=== PATIENT | male | born 1960 | race Caucasian/White ===

== ENCOUNTER → 2023-12-14 13:12 | Outpatient (REF) | payer BC, SELFPAY | LOC: HWRAD 13:12 | PROVIDERS: ATTENDING PHYSICIAN Surgery; FAMILY PHYSICIAN Internal Medicine | DX: N50.812 Left testicular pain (principal); R10.32 Left lower quadrant pain | CPT/HCPCS: 76870; 93976 ==

== ENCOUNTER → 2023-12-20 09:08 | Outpatient (REF) | payer BC, SELFPAY | LOC: PAVMRI 09:08 | PROVIDERS: FAMILY PHYSICIAN Internal Medicine; REFERRING PHYSICIAN Surgery | DX: R10.32 Left lower quadrant pain (principal); N50.812 Left testicular pain | CPT/HCPCS: 72197; A9575 ==

== ENCOUNTER → 2024-01-02 13:48 | Outpatient (REF) | payer BC, SELFPAY | LOC: HWRAD 13:48 | PROVIDERS: ATTENDING PHYSICIAN Internal Medicine | DX: E27.8 Other specified disorders of adrenal gland (principal) | CPT/HCPCS: 74150 ==